=== PATIENT | female | born 1990 | race Caucasian/White ===

== ENCOUNTER 2024-12-29 07:09 | Observation (INO) | payer OTHER, SELFPAY ==
[2024-12-29 07:13] VITALS: BP 121/73; PULSE 96; RESP 18; RESP 99; TEMP 36.6; BMI 37.4
[2024-12-29 07:17] VITALS: BP 121/73; PULSE 96
[2024-12-29 07:47] VITALS: BP 127/74; PULSE 99
[2024-12-29 08:10] LABS: Collection Type, Urine Clean Catch
[2024-12-29 08:19] LABS: Bacteria,Urine 3+; Bilirubin,Urine Negative (Negative); Blood,Urine Trace (Negative); Clarity,Urine Turbid (Clear/Hazy); Color,Urine Yellow (Lt Yel-Yel); Glucose, Urine Negative (Negative); Hyaline Casts,Urine < 1 /hpf (0-1); Hyphae Yeast Present; Ketones,Urine Negative (Negative); Leukocyte Esterase,Urine Positive (Negative); Nitrite,Urine Negative (Negative); PH,Urine 7.5 (5.0-7.0); Protein,Urine Trace (Neg - Trace); RBC,Urine 32 /hpf (0-3); Specific Gravity,Urine 1.019 (1.001-1.035); Squamous Epithelial Cell,Urine 13 /hpf (0-5); Urobilinogen,Urine Negative mg/dL (0.0-1.0); WBC,Urine 35 /hpf (0-5)
[2024-12-29] MEDS: RINGERS LACTATED 1000 ML 1,000 ML 999 ML IV (08:25)
[2024-12-29 08:55] LABS: FFN Specimen Descripton Clr Colrless Aqueous; Fetal Fibronectin Negative (Negative)
[2024-12-29] MEDS: cefTRIAXone 2 GM in SODIUM CHLORIDE 0.9% (Popper) 50 ML IV (09:33)
== END 2024-12-29 10:20 | disposition home or self-care (01) ==
PROVIDERS: Obstetrics & Gynecology; Admitting Provider Obstetrics & Gynecology; Visit Provider Obstetrics & Gynecology
DX: O47.03 False labor before 37 completed weeks of gestation, third trimester (principal); Z3A.33 33 weeks gestation of pregnancy
CPT/HCPCS: 59025; 59899; 81001; 82731; 87086; J0696; J7050; J7120